=== PATIENT | female | born 1950 ===

== ENCOUNTER 2024-12-14 12:58 | Outpatient (CLI) | payer OTHER, SELFPAY ==
[2024-12-14 23:04] LABS: Bacterial Vaginosis* Negative (Negative); Candida glab/krus NOT DETECTED (No Detected)
== END 2024-12-14 12:59 | disposition home or self-care (01) ==
PROVIDERS: Visit Provider Registered Nurse
DX: N89.8 Other specified noninflammatory disorders of vagina (principal); R39.89 Other symptoms and signs involving the genitourinary system; R10.2 Pelvic and perineal pain; N39.0 Urinary tract infection, site not specified
CPT/HCPCS: 81513; 87086; 87481; 87661